=== PATIENT | male | born 1985 ===

== ENCOUNTER 2016-08-10 18:58 | Inpatient (IN) ==
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
[2016-08-10] MEDS ORDERED: ACETAMINOPHEN 325 MG TABLET PO PRN (21:42)
[2016-08-10] MEDS ORDERED: ONDANSETRON 4 MG/2 ML VIAL IV PRN (21:42)
[2016-08-10] MEDS ORDERED: BISACODYL 5 MG TABLET PO PRN (21:42)
[2016-08-10] MEDS: LACTATED RINGERS 1,000 ML IV SCH (23:38)
[2016-08-10] MEDS: CEFTAROLINE 600 MG in SODIUM CHLORIDE 0.9% 100 ML IV SCH (23:51)
[2016-08-11] MEDS ORDERED: ceFAZolin 2,000 MG in SODIUM CHLORIDE 0.9% 100 ML IV ONE (07:00)
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
[2016-08-11 07:18] LABS: Basophils # 0.1 10*3/uL (0.0-0.2); Basophils % 0.4 % (0.0-0.8); Eosinophils # 0.2 10*3/uL (0.0-0.87); Eosinophils % 1.5 % (0.00-10.9); Hematocrit 37.2 VOL% (42.0-52.0); Hemoglobin 12.7 GM/DL (14.0-18.0); Immature Granulocytes % 0.4 %; Immature Granulocytes Absolute 0.05 #; Lymphocytes # 2.3 10*3/uL (1.4-4.0); Lymphocytes % 18.9 % (21.2-54.2); Mean Corpuscular HGB Conc 34.1 GM/DL (32-36); Mean Corpuscular Hemoglobin 32 PG (27-34); Mean Corpuscular Volume 92.8 FL (87-102); Mean Platelet Volume 10.8 FL (9.6-12.0); Neutrophils # 8.6 10*3/uL (1.4-7.4); Neutrophils % 70.8 % (38.7-73.9); Platelet Count 267 T/CUMM (130-400); Red Blood Count 4.01 MC/CUMM (3.8-5.5); Red Cell Distribution Width 13.2 % (9.3-17.3); White Blood Count 12.1 T/CUMM (4-12)
--- NOTE | 2016-08-11 07:20 | XRay Report ---
Exam: XR chest 1V portable Date: 08/11/2016 6:59 AM Indication: Pain preop respiratory evaluation of the chest thigh hematoma Comparison: None Technical:AP portable Findings: Cardiomegaly present without obvious infiltrate on the mid inspiratory exam. Mediastinum and bony structures are intact. Impression: 1. Cardiomegaly without decompensation PROCEDURE INTERPRETED AT [facility] DEPARTMENT OF RADIOLOGY Final Report Signed by: Dr. Onesimo Foss
[2016-08-11 07:29] LABS: PT Patient Result 10.2 SECS
[2016-08-11] MEDS: LACTATED RINGERS 1,000 ML IV SCH ×3 (07:39→14:00)
[2016-08-11] MEDS: CEFTAROLINE 600 MG in SODIUM CHLORIDE 0.9% 100 ML IV SCH ×2 (09:36→22:22)
[2016-08-11] MEDS: PANTOPRAZOLE 40 MG TABLET PO SCH (09:36)
[2016-08-11] MEDS ORDERED: KETOROLAC 30 MG/1 ML VIAL ONE (13:37)
[2016-08-11] MEDS ORDERED: PROPOFOL 200 MG/20 ML VIAL IV ONE (13:37)
[2016-08-11] MEDS ORDERED: LIDOCAINE 100 MG/5 ML SYRINGE ONE (13:37)
[2016-08-11] MEDS ORDERED: BUPIVACAINE MPF 0.25% /EPI 30 ML VIAL ONE (13:47)
[2016-08-11] MEDS ORDERED: HYDROmorphone 2 MG/1 ML VIAL IV PRN (14:13)
[2016-08-11] MEDS ORDERED: fentaNYL 100 MCG/2 ML VIAL ONE (14:21)
[2016-08-11] MEDS ORDERED: MIDAZOLAM 2 MG/2 ML VIAL ONE (14:21)
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
[2016-08-11] MEDS ORDERED: ONDANSETRON 4 MG/2 ML VIAL IV PRN (14:56)
[2016-08-11] MEDS ORDERED: ONDANSETRON 4 MG/2 ML VIAL ONE (14:58)
[2016-08-11] MEDS ORDERED: HYDROmorphone 2 MG/1 ML VIAL ONE (14:58)
[2016-08-11] MEDS: HYDROmorphone 2 MG/1 ML VIAL IV PRN ×2 (15:02→15:12)
[2016-08-11] MEDS: DEXTROSE 5% NACL 0.45% 1,000 ML IV SCH (16:07)
[2016-08-11] MEDS: KETOROLAC 15 MG/1 ML VIAL IV SCH ×2 (16:08→20:19)
[2016-08-11] MEDS: ceFAZolin 2,000 MG in PREMIX 1 EACH IV SCH (20:19)
[2016-08-12] MEDS: DEXTROSE 5% NACL 0.45% 1,000 ML IV SCH ×3 (02:19→14:30)
[2016-08-12] MEDS: KETOROLAC 15 MG/1 ML VIAL IV SCH ×4 (02:20→21:58)
[2016-08-12] MEDS: ceFAZolin 2,000 MG in PREMIX 1 EACH IV SCH (04:16)
[2016-08-12 06:33] LABS: Basophils # 0.1 10*3/uL (0.0-0.2); Basophils % 0.6 % (0.0-0.8); Eosinophils # 0.4 10*3/uL (0.0-0.87); Eosinophils % 4.9 % (0.00-10.9); Hematocrit 38.5 VOL% (42.0-52.0); Hemoglobin 12.1 GM/DL (14.0-18.0); Immature Granulocytes % 0.5 %; Immature Granulocytes Absolute 0.04 #; Lymphocytes # 2.5 10*3/uL (1.4-4.0); Lymphocytes % 30.7 % (21.2-54.2); Mean Corpuscular HGB Conc 31.4 GM/DL (32-36); Mean Corpuscular Hemoglobin 30 PG (27-34); Mean Corpuscular Volume 95.5 FL (87-102); Mean Platelet Volume 11.3 FL (9.6-12.0); Monocytes # 0.7 10*3/uL (0.11-0.8); Monocytes % 8.3 % (1.7-12.7); Neutrophils # 4.5 10*3/uL (1.4-7.4); Platelet Count 313 T/CUMM (130-400); Red Blood Count 4.03 MC/CUMM (3.8-5.5); Red Cell Distribution Width 13.2 % (9.3-17.3); White Blood Count 8.2 T/CUMM (4-12)
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
[2016-08-12 07:09] LABS: Calcium 8.6 MG/DL (8.5-10.1); Osmolality,Calculated 281.3 MOS/KG (273-304); Potassium 4.1 MMOL/L (3.5-5.1)
[2016-08-12] MEDS: PANTOPRAZOLE 40 MG TABLET PO SCH (08:07)
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
--- NOTE | 2016-08-12 09:24 | General Surgery Progress Note ---
Assessment and Plan - Time spent with patient Time spent with patient: Less than 30 minutes (1) Hematoma of thigh Status: Acute Assessment and plan: 08/12/2016 Patient is stable post I&D of left thigh hematoma with primary closure. He is fairly comfortable. We will watch his labs and establish wound care. He is also scheduled to have PT and wound care evaluation to teach him how to manage this at home. Looking at discharge once we get the culture results. Current Visit: Yes Subjective Patient reports: Present: pain is less. Absent: nausea, vomiting Exam - Constitutional Vitals: Period Temp Pulse Resp BP Sys/Belle Pulse Ox Last 24 Hr 97.1 F-99.7 F 73-102 16-21 94-138/56-95 94-100 General appearance: no acute distress - Respiratory Respiratory exam: Present: clear to auscultation bilaterally - Cardiovascular Cardiovascular exam: Present: RRR - Extremities Exam Extremities exam: Present: other (Left lower extremity edema is improved. Left posterior lateral thigh incision is clean, and there is no reaccumulation of fluid. MAU is intact with serosanguineous drainage, about 30 cc. He is not unusually tender. He has good neurovascular function of the toes.) Results - Labs CBC & BMP: 08/12/16 05:46 08/12/16 05:46 Lab Results: I have reviewed the past 24 hour labs (Postop labs are stable.) Quality Measures - VTE Contraindication to Pharmacological VTE Prophylaxis: High Risk of Bleeding
[2016-08-12] MEDS: CEFTAROLINE 600 MG in SODIUM CHLORIDE 0.9% 100 ML IV SCH ×2 (10:14→21:59)
[2016-08-12] MEDS ORDERED: SODIUM HYPOCHLORITE 0.25% IRRIG 473 ML BOTTLE TOP SCH (10:30)
[2016-08-12] MEDS: BACITRACIN OINT 0.9 GM PACK TOP SCH (10:35)
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
[2016-08-13] MEDS: KETOROLAC 15 MG/1 ML VIAL IV SCH ×4 (02:50→21:09)
[2016-08-13] MEDS: PANTOPRAZOLE 40 MG TABLET PO SCH (08:35)
[2016-08-13] MEDS: CEFTAROLINE 600 MG in SODIUM CHLORIDE 0.9% 100 ML IV SCH ×2 (09:27→21:08)
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
[2016-08-13] MEDS: BACITRACIN OINT 0.9 GM PACK TOP SCH (12:52)
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
[2016-08-13] MEDS: CIPROFLOXACIN 500 MG TABLET PO SCH (21:09)
[2016-08-14] MEDS: KETOROLAC 15 MG/1 ML VIAL IV SCH ×2 (03:14→11:08)
[2016-08-14 07:03] VITALS: BP 124/76
--- NOTE | 2016-08-14 07:23 | Orthopedic Progress Note ---
Assessment and Plan (1) Right shoulder injury Status: Acute Assessment and plan: I discussed the findings with patient at the bedside this morning. I explained from a muscular standpoint everything appears to be intact. It appears that he had a traction injury to the brachial plexus. We discussed the fact that he would likely have some recovery of his neurologic function over time, whether or not he was able to regain full function of the shoulder is unknown at this point. I explained that it could take a year to 18 months for maximal recovery. Until that time, he needs to continue passive range of motion exercises of the right shoulder to prevent contracture. Current Visit: Yes Qualifiers: Encounter type: initial encounter Qualified Code(s): S49.91XA - Unspecified injury of right shoulder and upper arm, initial encounter Orthopedics - Subjective Interval history: No new complaints Shoulder MRI showed rotator cuff to be intact, contusions are noted Cervical spine MRI showed no bony abnormality, but had signal consistent with traction-type injury to the plexus Exam - Constitutional Vitals: Period Temp Pulse Resp BP Sys/Belle Pulse Ox Last 24 Hr 97.2 F-98.6 F 67-83 16-18 118-142/63-78 95-99 Results - Labs CBC & BMP: 08/12/16 05:46 08/12/16 05:46 Quality Measures - VTE Contraindication to Pharmacological VTE Prophylaxis: High Risk of Bleeding
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
[2016-08-14] MEDS: BACITRACIN OINT 0.9 GM PACK TOP SCH (08:09)
[2016-08-14] MEDS: PANTOPRAZOLE 40 MG TABLET PO SCH (09:55)
[2016-08-14] MEDS: CIPROFLOXACIN 500 MG TABLET PO SCH (09:55)
[2016-08-14] MEDS: CEFTAROLINE 600 MG in SODIUM CHLORIDE 0.9% 100 ML IV SCH (11:08)
== END 2016-08-14 11:10 | disposition home or self-care (01) | DRG 605 ==
LOC: N.ED 18:58 → N.EDINP 21:42 → N.3E 22:55
PROVIDERS: ADMIT Specialist; ATTEND Specialist

== ENCOUNTER 2019-05-28 19:43 | Inpatient (IN) ==
[2019-05-28] MEDS ORDERED: ORPHENADRINE 60 MG/2 ML VIAL IM STA (20:35)
[2019-05-28] MEDS ORDERED: MEPERIDINE 50 MG/1 ML VIAL IM STA (20:35)
[2019-05-28 20:40] LABS: Basophils # 0.1 10*3/uL (0.0-0.2); Basophils % 0.7 % (0.0-0.8); Eosinophils # 0.4 10*3/uL (0.0-0.87); Eosinophils % 3.1 % (0.00-10.9); Hematocrit 47.6 VOL% (42.0-52.0); Hemoglobin 15.5 GM/DL (14.0-18.0); Immature Granulocytes % 0.5 %; Immature Granulocytes Absolute 0.06 #; Lymphocytes # 2.6 10*3/uL (1.4-4.0); Lymphocytes % 20.7 % (21.2-54.2); Mean Corpuscular HGB Conc 32.6 GM/DL (32-36); Mean Corpuscular Volume 95.2 FL (87-102); Mean Platelet Volume 11.6 FL (9.6-12.0); Monocytes % 6.1 % (1.7-12.7); Neutrophils % 68.9 % (38.7-73.9); Platelet Count 231 T/CUMM (130-400); Red Cell Distribution Width 13.5 % (9.3-17.3); White Blood Count 12.4 T/CUMM (4-12)
[2019-05-28 20:51] LABS: Alanine Aminotransferase 65 U/L (16-61); Alkaline Phosphatase 149 U/L (45-117); Aspartate Amino Transferase 26 U/L (0-37); Bilirubin,Total < 0.39 MG/DL (0.2-1.0); Blood Urea Nitrogen 19 MG/DL (7-18); Calcium 8.8 MG/DL (8.5-10.1); Estimated Glom Filtration Rate 98 ML/MIN; Glucose 128 MG/DL (74-106); INR 0.9; Osmolality,Calculated 282.4 MOS/KG (273-304); Partial Thromboplastin Time 24.9 SECS (20.8-36.0); Total Protein 7.9 G/DL (6.4-8.3)
[2019-05-28] MEDS ORDERED: HYDROmorphone 2 MG/1 ML VIAL IV STA (22:08)
[2019-05-28] MEDS ORDERED: MORPHINE 4 MG/1 ML VIAL IV PRN (22:21)
[2019-05-28] MEDS ORDERED: MAGNESIUM HYDROXIDE SUSP 30 ML UDCUP PO PRN (22:21)
[2019-05-28] MEDS ORDERED: NEOMYCIN/POLYMYXIN/BACITRACIN OINT 28.4 GM TUBE TOP STA (22:25)
[2019-05-28] MEDS ORDERED: DIPHTHERIA/TETANUS ADULT VACCINE 0.5 ML SYRINGE IM ONE (22:26)
[2019-05-28] MEDS ORDERED: SODIUM CHLORIDE 0.9% 1,000 ML IV SCH (22:30)
[2019-05-28] MEDS ORDERED: ceFAZolin 1,000 MG VIAL IM ONE (23:15)
[2019-05-29] MEDS ORDERED: ceFAZolin 1,000 MG VIAL IM ONE (01:00)
[2019-05-29 01:45] LABS: Albumin 3.5 G/DL (3.4-5.0); Bilirubin,Total 0.7 MG/DL (0.2-1.0); Calcium 8.6 MG/DL (8.5-10.1); Osmolality,Calculated 278.7 MOS/KG (273-304); Total Protein 7.3 G/DL (6.4-8.3)
[2019-05-29] MEDS: MORPHINE 4 MG/1 ML VIAL IV PRN (06:12)
[2019-05-29] MEDS ORDERED: MORPHINE 4 MG/1 ML VIAL IV ONE (09:02)
[2019-05-29] MEDS ORDERED: BACITRACIN 50,000 UNIT VIAL ONE (13:06)
[2019-05-29] MEDS ORDERED: ceFAZolin 1,000 MG VIAL ONE (14:09)
[2019-05-29] MEDS ORDERED: propofoL 200 MG/20 ML VIAL IV ONE (16:56)
[2019-05-29] MEDS ORDERED: LIDOCAINE 2% 5 ML VIAL ONE (16:56)
[2019-05-29] MEDS ORDERED: MIDAZOLAM 2 MG/2 ML VIAL ONE (16:56)
[2019-05-29] MEDS ORDERED: DESFLURANE 1 UNIT/15 MINUTE INH ONE (16:56)
[2019-05-29] MEDS ORDERED: DEXAMETHASONE 4 MG/1 ML VIAL ONE (16:57)
[2019-05-29] MEDS ORDERED: GLYCOPYRROLATE 0.4 MG/2 ML VIAL ONE (16:57)
[2019-05-29] MEDS ORDERED: ROCURONIUM 100 MG/10 ML VIAL IV ONE (16:57)
[2019-05-29] MEDS ORDERED: ONDANSETRON 4 MG/2 ML VIAL ONE (16:57)
[2019-05-29] MEDS ORDERED: fentaNYL 100 MCG/2 ML VIAL ONE (16:57)
[2019-05-29] MEDS ORDERED: LACTATED RINGERS 1,000 ML IV ONE (16:57)
[2019-05-29] MEDS ORDERED: NEOSTIGMINE 10 MG/10 ML VIAL ONE (16:57)
[2019-05-29] MEDS: ceFAZolin 1,000 MG in SYRINGE 1 EACH IV SCH (17:36)
[2019-05-29] MEDS ORDERED: ONDANSETRON 4 MG/2 ML VIAL IV PRN (17:40)
[2019-05-30] MEDS: ceFAZolin 1,000 MG in SYRINGE 1 EACH IV SCH ×2 (02:43→12:37)
[2019-05-30] MEDS: MORPHINE 4 MG/1 ML VIAL IV PRN (02:53)
[2019-05-30 16:03] VITALS: BP 124/99
== END 2019-05-30 17:20 | disposition home or self-care (01) | DRG 494 ==
LOC: EDBD → EDUNIT# → N.ED 19:43 → N.EDINP 22:18 → N.3E 05-29 00:54 → UNDODISIN 05-30 13:20
PROVIDERS: ADMIT Orthopaedic Surgery; ATTEND Orthopaedic Surgery